=== PATIENT | male | born 1995 | race Caucasian/White ===

== ENCOUNTER 2017-12-20 17:02 | Emergency (ER) | payer BC ==
[~2017-12-20] VITALS: Ht 182.9 cm; Wt 115.2 kg
[2017-12-20 17:16] VITALS: Ht 182.9 cm; Wt 115.2 kg
[2017-12-20 19:11] VITALS: BP 153/102
== END 2017-12-20 19:11 | disposition home or self-care (01) ==
LOC: ED 17:02
DX: M71.21 Synovial cyst of popliteal space [Baker], right knee (principal); J45.909 Unspecified asthma, uncomplicated
CPT/HCPCS: Q0092

== ENCOUNTER 2018-03-26 19:37 | Emergency (ER) | payer BC ==
[~2018-03-26] VITALS: Ht 182.9 cm; Wt 112.9 kg
[2018-03-26 20:13] VITALS: Ht 182.9 cm; Wt 112.9 kg
[2018-03-26 23:16] VITALS: BP 146/90
== END 2018-03-26 23:16 | disposition home or self-care (01) ==
LOC: ED 19:37
DX: T15.91XA Foreign body on external eye, part unspecified, right eye, initial encounter (principal); R03.0 Elevated blood-pressure reading, without diagnosis of hypertension; X58.XXXA Exposure to other specified factors, initial encounter; Y92.69 Other specified industrial and construction area as the place of occurrence of the external cause

== ENCOUNTER 2018-08-06 11:08 | Emergency (ER) | payer SELFPAY ==
[~2018-08-06] VITALS: Ht 182.9 cm; Wt 111.6 kg
[2018-08-06 11:14] VITALS: Ht 182.9 cm; Wt 111.6 kg
[2018-08-06 13:37] VITALS: BP 138/89
== END 2018-08-06 13:37 | disposition home or self-care (01) ==
LOC: ED 11:08
DX: S09.8XXA Other specified injuries of head, initial encounter (principal); J45.909 Unspecified asthma, uncomplicated; Y04.8XXA Assault by other bodily force, initial encounter; Y93.89 Activity, other specified; Y92.89 Other specified places as the place of occurrence of the external cause; Y99.8 Other external cause status
CPT/HCPCS: J2765; J7030

== ENCOUNTER 2018-08-08 22:04 | Emergency (ER) | payer SELFPAY ==
[~2018-08-08] VITALS: Ht 182.9 cm; Wt 113.1 kg
[2018-08-08 22:13] VITALS: BP 138/88
== END 2018-08-08 23:01 | disposition left against medical advice (07) ==
LOC: ED 22:04
DX: Z53.21 Procedure and treatment not carried out due to patient leaving prior to being seen by health care provider (principal)

== ENCOUNTER 2018-12-12 19:43 | Emergency (ER) | payer OTHER ==
[~2018-12-12] VITALS: Ht 177.8 cm; Wt 110.2 kg
[2018-12-12 19:57] VITALS: Ht 177.8 cm; Wt 110.2 kg
[2018-12-12 20:47] LABS: CALCIUM 8.6 mg/dL (8.5-10.1); CARBON DIOXIDE 27.9 mmol/L (21-32); CHLORIDE SERUM 105 mmol/L (98-107); CREATININE SERUM 0.9 mg/dL (0.7-1.3); GFR1 > 60 mL/min; GLUCOSE SERUM 83 mg/dL (74-106); POTASSIUM SERUM 3.6 mmol/L (3.5-5.1); SODIUM SERUM 140 mmol/L (136-145)
[2018-12-12 20:51] LABS: ALBUMIN 3.8 g/dL (3.4-5.0); ALKALINE PHOSPHATASE 76 U/L (46-116); ALT/SGPT 55 U/L (16-63); AST/SGOT 24 U/L (15-37); BILIRUBIN TOTAL 0.4 mg/dL (0.20-1.00); TOTAL PROTEIN, SERUM 7.5 g/dL (6.4-8.2)
[2018-12-12 20:56] LABS: BASOPHIL % 0.6 % (0-2); PLATELET COUNT 220 x10^3mcL (130-400); RED CELL DISTRIBUTION WIDTH 13.6 % (11.5-14.5)
[2018-12-12 22:07] VITALS: BP 133/76
== END 2018-12-12 22:07 | disposition home or self-care (01) ==
LOC: ED 19:43
PROVIDERS: Emergency Medicine
DX: K52.9 Noninfective gastroenteritis and colitis, unspecified (principal)
CPT/HCPCS: J1885; J2405; J7030

== ENCOUNTER 2018-12-16 12:25 | Emergency (ER) | payer OTHER ==
[~2018-12-16] VITALS: Ht 177.8 cm; Wt 109.3 kg
[2018-12-16 12:31] VITALS: Ht 177.8 cm; Wt 109.3 kg
[2018-12-16 12:53] LABS: BASOPHIL % 0.4 % (0-2); PLATELET COUNT 219 x10^3mcL (130-400); RED CELL DISTRIBUTION WIDTH 13.6 % (11.5-14.5)
[2018-12-16 13:11] LABS: CALCIUM 9.2 mg/dL (8.5-10.1); CARBON DIOXIDE 30.1 mmol/L (21-32); CHLORIDE SERUM 103 mmol/L (98-107); GFR1 > 60 mL/min; GLUCOSE SERUM 110 mg/dL (74-106); POTASSIUM SERUM 4.3 mmol/L (3.5-5.1); SODIUM SERUM 137 mmol/L (136-145)
[2018-12-16 13:16] LABS: ALBUMIN 4.2 g/dL (3.4-5.0); ALKALINE PHOSPHATASE 77 U/L (46-116); ALT/SGPT 57 U/L (16-63); AST/SGOT 25 U/L (15-37); BILIRUBIN TOTAL 0.54 mg/dL (0.20-1.00); TOTAL PROTEIN, SERUM 7.8 g/dL (6.4-8.2)
[2018-12-16 15:19] LABS: microscopic required? YES; urine erythrocyte TRACE (NEGATIVE)
[2018-12-16 15:41] VITALS: BP 134/73
== END 2018-12-16 15:55 | disposition home or self-care (01) ==
LOC: ED 12:25
PROVIDERS: Emergency Medicine
DX: R10.30 Lower abdominal pain, unspecified (principal); N50.811 Right testicular pain
CPT/HCPCS: 36415; 87491; 87591; Q0092